=== PATIENT | male | born 1990 | race Hispanic/Latino ===

== ENCOUNTER 2022-03-30 04:22 | Emergency (ER) | payer OTHER ==
[2022-03-30] MEDS ORDERED: Boostrix 0.5 ML (Tdap) VIAL (>/=7 yrs of age) ONE (04:31)
== END 2022-03-30 04:54 | disposition home or self-care (01) ==
LOC: MADERS 04:22
DX: S30.811A Abrasion of abdominal wall, initial encounter (principal); V09.9XXA Pedestrian injured in unspecified transport accident, initial encounter; Y92.69 Other specified industrial and construction area as the place of occurrence of the external cause; Z23 Encounter for immunization
CPT/HCPCS: 90471; 90715; 99283